=== PATIENT | male | born 1935 | race Hispanic/Latino ===

== ENCOUNTER 2018-03-18 06:30 | Day surgery (SDC) | payer MEDICARE, OTHER ==
[2017-11-02 09:22] VITALS: BMI 27.2
[2018-03-18] MEDS ORDERED: Atropine-Diphenoxylate 0.025-2.5 mg Tab PO STA (07:39)
[2018-03-18] MEDS ORDERED: Lactated Ringer's 1,000 ML IV ONE (08:05)
[2018-03-18] MEDS ORDERED: Midazolam 2 MG/2 ML VIAL ONE (08:07)
[2018-03-18] MEDS ORDERED: Propofol 10 mg/ml Inj (20 ML) ONE (08:07)
[2018-03-18 09:31] VITALS: TEMP 97.1
[2018-03-18 10:09] VITALS: RESP 15; O2SAT 95
[2018-03-18 12:59] VITALS: BP 145/74; PULSE 67
== END 2018-03-18 12:12 | disposition home or self-care (01) ==
LOC: C.ENDO 06:30
PROVIDERS: ATTEND Internal Medicine
DX: A04.71 Enterocolitis due to Clostridium difficile, recurrent (principal)
CPT/HCPCS: 44705; 45378; J2001; J2250; J2704; J3010; J7120